=== PATIENT | female | born 1995 | race Caucasian/White ===

== ENCOUNTER 2025-01-29 09:06 | Emergency (ER) | payer MEDICAID, SELFPAY ==
[2025-01-29] VITALS (10 sets, daily range): BP systolic 118–133; BP diastolic 62–98; PULSE 63–86; RESP 16; TEMP 36.7; O2SAT 95–99
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
[2025-01-29 09:33] LABS: Abs Immature Grans 0.01 10^3/uL (0.0-0.06); HCT 40.8 % (36.0-46.0); HGB 13.7 g/dL (11.2-15.7); Immature Grans % 0.2 %; MCH 29.9 pg (27.0-33.0); MCHC 33.6 % (32.0-36.0); MCV 89 fL (80-95); MPV 10.6 fL (8.0-11.0); Platelet Count 211 10^3/uL (130-400); RBC 4.58 10^6/uL (3.93-5.22); RDW 11.9 % (11.7-14.6); RDW-SD 38.6 fL; WBC 5.37 10^3/uL (4.4-10.8)
[2025-01-29] MEDS: MORPHine 10 MG/ML VIAL 2 MG IVP ×2 (09:36→11:04)
[2025-01-29 09:54] LABS: ALT 46 U/L (14-59); AST 21 U/L (15-37); Albumin 3.6 g/dL (3.4-5.0); Alkaline Phosphatase 44 U/L (46-116); Anion Gap 8.9 mmol/L (3-11); BUN 8 mg/dL (7-18); Bilirubin, Total 0.6 mg/dL (0.2-1.0); CO2 24.1 mmol/L (21.0-32.0); Calcium 9.1 mg/dL (8.5-10.1); Chloride 105 mmol/L (98-107); Estimated GFR 102.86 (mL/min/1.73m2); Glucose 113 mg/dL (74-106); Potassium 4.1 mmol/L (3.5-5.1); Sodium 138 mmol/L (136-145); Total Protein 7.2 g/dL (6.4-8.2)
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
[2025-01-29 11:09] LABS: Glucose Negative (Negative)
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
[2025-01-29] MEDS: Normal Saline - Diluent 50 ML VIAL IJ (11:18)
[2025-01-29] MEDS: Normal Saline Flush 10 ML SYR IVP (11:18)
[2025-01-29] MEDS: Omnipaque 350 MG/ML 500 ML BTL-Imaging package IJ (11:19)
[2025-01-29] MEDS: Ketorolac 15 MG/ML VIAL 7.5 MG IVP (13:23)
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
== END 2025-01-29 13:46 | disposition home or self-care (01) ==
PROVIDERS: Emergency Provider Physician Assistant; PCP Physician Assistant
DX: S06.0XAA Concussion with loss of consciousness status unknown, initial encounter (principal); H93.11 Tinnitus, right ear; V47.0XXA Car driver injured in collision with fixed or stationary object in nontraffic accident, initial encounter
CPT/HCPCS: 36415; 70496; 70498; 80053; 81025; 96374; 96375; 96376; 99285; 70450; 71045; 72125; 73590; 81003; 85025; 99284; J1885; J2270